=== PATIENT | female | born 1960 | race African-American/Black ===

== ENCOUNTER 2025-09-03 20:39 | Emergency (ER) | payer OTHER ==
[~2025-09-03] VITALS: Ht 177.8 cm; Wt 111.4 kg
[2025-09-03 20:48] VITALS: O2SAT 97
[2025-09-03 22:04] LABS: BASOPHILS % 0.5 % (0.0-2.0); EOSINOPHILS % 1.2 % (0.0-5.0); HEMATOCRIT. 37.7 % (36.0-48.0); HEMOGLOBIN. 12.3 g/dL (12.0-16.0); LYMPHOCYTES % 28.0 % (20.0-50.0); MEAN PLATELET VOLUME 6.9 fl (7.4-10.4); MONOCYTES % 10.4 % (2.0-8.0); NEUTROPHILS % 59.9 % (40.0-76.0); PLATELET 198 x1000/uL (130-400); RED BLOOD CELL COUNT 4.32 mill/uL (4.2-5.4); RED CELL DISTRIBUTION WIDTH 14.5 % (11.6-14.6)
[2025-09-03] MEDS: AMLODIPINE 5MG TABLET PO ONE (22:16)
[2025-09-03 22:21] LABS: CREATININE 0.9 mg/dL (0.6-1.0)
[2025-09-03 22:22] LABS: UREA NITROGEN BLOOD 8 mg/dL (9-23)
[2025-09-03 22:58] VITALS: BP 185/115; PULSE 80; RESP 20; TEMP 36.8; O2SAT 98
[2025-09-03] MEDS ORDERED: AMLO5TAB88 MT (23:20)
== END 2025-09-03 23:23 | disposition home or self-care (01) ==
LOC: ER 20:39 → CMPBEDREQ 09-04 07:58
DX: L97.509 Non-pressure chronic ulcer of other part of unspecified foot with unspecified severity (principal); I10 Essential (primary) hypertension
CPT/HCPCS: 36415; 73630; 80048; 85025; 99284